=== PATIENT | male | born 1940 | race Caucasian/White ===

== ENCOUNTER 2020-01-21 11:10 | Inpatient (IN) | payer MEDICARE, OTHER ==
[2020-01-21 12:29] LABS: ALBUMIN 3.4 g/dL (3.5-5.0); ALKALINE PHOSPHATASE 71 U/L (38-126); ANION GAP 5 (5-19); ASPARTATE AMINO TRANSFERASE 26 U/L (17-59); BILIRUBIN,DIRECT 0.1 mg/dL (0.0-0.4); BLOOD UREA NITROGEN 27 mg/dL (7-20); CALCIUM 8.8 mg/dL (8.4-10.2); CARBON DIOXIDE 29 mmol/L (22-30); CHLORIDE 103 mmol/L (98-107); GLUCOSE 90 mg/dL (75-110); POTASSIUM 3.6 mmol/L (3.6-5.0)
[2020-01-21 12:39] LABS: HEMATOCRIT 38.1 % (37.9-51.0); HEMOGLOBIN 13.6 g/dL (13.5-17.0); MEAN CORPUSCULAR HEMOGLOBIN 35.8 pg (27.0-33.4); MEAN CORPUSCULAR HGB CONC 35.8 g/dL (32.0-36.0); MEAN CORPUSCULAR VOLUME 100 fl (80-97); PLATELET COUNT 114 10^3/uL (150-450); RED CELL DISTRIBUTION WIDTH 13.7 % (11.5-14.0); WHITE BLOOD COUNT 9.1 10^3/uL (4.0-10.5)
--- NOTE | 2020-01-21 12:41 | ER Document Report ---
ED Respiratory Problem - General Chief Complaint: Shortness Of Breath Stated Complaint: SHORTNESS OF BREATH Time Seen by Provider: 01/21/20 12:08 Primary Care Provider: HANS AGUDELO MD [Primary Care Provider] - Follow up as needed Notes: CHIEF COMPLAINT: Shortness of breath intermittently for 3 weeks HPI: 79-year-old male with history of COPD who denies cardiac problems presenting for intermittent shortness of breath for 3 weeks. Patient states that exertional activities make him short of breath, did not give him chest pain. Has been seeing his PCP and his engraver rubber in [place], states he did have some blood work done 2 to 3 days ago was called today and told he needed to have a CTA of the chest to rule out a blood clot. Patient states that they did COVID-19 testing on him yesterday although he has not had recent travel or exposure. Patient states that when he is sitting still he does not have problems with shortness of breath. Patient states that when he exerts himself his pulse oximetry which he checks at home will drop to 85%. Patient does not use oxygen at home ROS: See HPI - all other systems were reviewed and are otherwise negative Constitutional: no fever Eyes: no drainage, no blurred vision ENT: no runny nose, no sore throat Cardiovascular: no chest pain Resp: + SOB, no cough GI: no vomiting, no diarrhea, no abdominal pain : no dysuria Integumentary: no rash Allergy: no hives Musculoskeletal: no extremity pain or swelling Neurological: no numbness/tingling, no weakness MEDICATIONS: I agree with the patient medications as charted by the RN. ALLERGIES: I agree with the allergies as charted by the RN. PAST MEDICAL HISTORY/PAST SURGICAL HISTORY: Reviewed and agree as charted by RN. SOCIAL HISTORY: Reviewed and agree as charted by RN. FAMILY HISTORY: No significant familial comorbid conditions directly related to patient complaint EXAM: Reviewed vital signs as charted by RN. CONSTITUTIONAL: Alert and oriented and responds appropriately to questions. Well-appearing; well-nourished HEAD: Normocephalic; atraumatic EYES: PERRL; Conjunctivae clear, sclerae non-icteric ENT: normal nose; no rhinorrhea; moist mucous membranes; pharynx without lesions noted, no uvula edema or deviation, no tonsillar hypertrophy, phonation normal NECK: Supple without meningismus; non-tender; no cervical lymphadenopathy, no masses CARD: RRR; no murmurs, no clicks, no rubs, no gallops; symmetric distal pulses RESP: Normal chest excursion without splinting or tachypnea; breath sounds clear and equal bilaterally; no wheezes, no rhonchi, no rales, pulse oximetry 94% on room air at rest ABD/GI: Normal bowel sounds; non-distended; soft, non-tender, no rebound, no guarding; no palpable organomegaly or masses. BACK: The back appears normal and is non-tender to palpation, there is no CVA tenderness EXT: Normal ROM in all joints; non-tender to palpation; no cyanosis, no effusions, no edema SKIN: Normal color for age and race; warm; dry; good turgor; no acute lesions noted NEURO: Moves all extremities equally; Motor and sensory function intact PSYCH: The patient's mood and manner are appropriate. Grooming and personal hygiene are appropriate. MDM: 79-year-old male with COPD history with intermittent shortness of breath for 3 weeks worse with exertional activities. States that his engraver rubber did blood work several days ago and told him it was abnormal and he needed a CTA of the chest for blood clot, had COVID testing yesterday although he does not have significant risk factors. Will obtain screening cardiac labs, CTA of the chest. Will have nursing ambulate the patient to evaluate for hypoxia TRAVEL OUTSIDE OF THE [place] IN LAST 30 DAYS: No - Related Data Allergies/Adverse Reactions: No Known Allergies Allergy (Unverified 11/04/15 14:55) Home Medications: tamsulosin, finasteride, lasix, cetirizine, folic acid, potassium, metoprolol, meclizine, olmesartan-hctz, mirtazepine, flonase, lorazepam, adderall, lamictal, dulera, spirivia, proair, incruse Past Medical History - Social History Smoking Status: Former Smoker Chew tobacco use (# tins/day): No Frequency of alcohol use: daily Family History: Reviewed & Not Pertinent Patient has homicidal ideation: No - Past Medical History Cardiac Medical History: Reports: Hx Hypercholesterolemia, Hx Hypertension - MEDICATED Denies: Hx Atrial Fibrillation, Hx Congestive Heart Failure, Hx Coronary Artery Disease, Hx Heart Attack, Hx Peripheral Vascular Disease, Hx Pulmonary Embolism, Hx Heart Murmur Pulmonary Medical History: Reports: Hx COPD, Hx Sleep Apnea - wears c-pap at home Denies: Hx Asthma, Hx Bronchitis, Hx Pneumonia, Hx Respiratory Failure, Hx Tuberculosis Neurological Medical History: Denies: Hx Cerebrovascular Accident, Hx Seizures, Hx Parkinson's Disease Endocrine Medical History: Denies: Hx Graves' Disease, Hx Hyperthyroidism, Hx Hypothyroidism Renal/ Medical History: Reports: Hx Benign Prostatic Hyperplasia. Denies: Hx End Stage Renal Disease, Hx Kidney Stones, Hx Peritoneal Dialysis Malignancy Medical History: Denies Hx Leukemia, Denies Hx Lung Cancer GI Medical History: Reports: Hx Gastroesophageal Reflux Disease, Hx Irritable Bowel. Denies: Hx Crohn's Disease, Hx Hepatitis, Hx Hiatal Hernia, Hx Liver Failure, Hx Pancreatitis, Hx Ulcer Musculoskeletal Medical History: Denies Hx Arthritis, Denies Hx Fibromyalgia, Denies Hx Multiple Sclerosis, Denies Hx Muscular Dystrophy, Denies Hx Systemic Lupus Erythematosus Psychiatric Medical History: Reports: Hx Bipolar Disorder, Hx Post Traumatic Stress Disorder Denies: Hx Dementia, Hx Depression, Hx Schizophrenia Traumatic Medical History: Denies: Hx Fractures Infectious Medical History: Denies: Hx Hepatitis, Hx HIV Past Surgical History: Reports: Hx Orthopedic Surgery. Denies: Hx Appendectomy, Hx Bowel Surgery, Hx Cholecystectomy, Hx Colostomy, Hx Coronary Artery Bypass Graft, Hx Gastric Bypass Surgery, Hx Herniorrhaphy, Hx Open Heart Surgery, Hx Pacemaker, Hx Tonsillectomy - Immunizations Hx Diphtheria, Pertussis, Tetanus Vaccination: Yes Hx Pneumococcal Vaccination: 04/25/12 Physical Exam - Vital signs Vitals: Temp Pulse Resp BP Pulse Ox 97.5 F 53 L 20 149/64 H 94 01/21/20 11:52 01/21/20 11:52 01/21/20 11:52 01/21/20 11:52 01/21/20 11:52 Course - Re-evaluation Re-evalutation: 01/21/20 13:49 Pulse oximetry 91 to 92% on room air with ambulation. 01/21/20 14:47 called by the reading radiologist, patient with bilateral PE. discussed with Dr. Diaz, Attending. Will start heparin drip. Awaiting official read then will call the patient's engraver rubber Dr. Agudelo in [place]. 01/21/20 15:[address] Loaiza, Hospitalist. Reviewed the patient's case and imaging studies. He states he would be more comfortable admitting the patient if we called a vascular surgeon to have them review the images to make sure the patient would not need catheter directed TPA or other intervention at this time. I have had the PCT send the images to [facility] and I will consult the vascular surgery team. 01/21/20 15:19 spoke with Transfer center at [facility], they will look at the images and have Vas cular call vt 01/21/20 15:[address] Penny, Vascular surgery, [facility]. He has evaluated the images, we discussed the patient's lab work and clinical picture, he does not believe patient needs TPA or other intervention at this time will likely need an echocardiogram performed but they would not intervene otherwise in this patient other than putting him on heparin at this time 01/21/20 15:[address] Loaiza, Hospitalist. case and consult discussed, will admit, IMCU/Telemetry - Vital Signs Vital signs: Temp Pulse Resp BP Pulse Ox 97.5 F 53 L 18 146/81 H 90 L 01/21/20 11:52 01/21/20 11:52 01/21/20 14:32 01/21/20 13:01 01/21/20 14:32 - Laboratory Result Diagrams: 01/21/20 11:33 01/21/20 11:33 Laboratory results interpreted by vt: 01/21/20 01/21/20 11:33 11:33 RBC 3.80 L MCV 100 H MCH 35.8 H Plt Count 114 L Band Neutrophils % 1 L Sodium 136.5 L BUN 27 H Total Protein 6.0 L Albumin 3.4 L Discharge - Discharge Clinical Impression: Pulmonary embolism, bilateral Condition: Fair Disposition: ADMITTED INPATIENT Admitting Provider: Josse (Hospitalist) Unit Admitted: IMCU Referrals: HANS AGUDELO MD [Primary Care Provider] - Follow up as needed
--- NOTE | 2020-01-21 12:55 | EKG REPORT ---
SEVERITY:- OTHERWISE NORMAL ECG - SINUS BRADYCARDIA ATRIAL PREMATURE COMPLEX : Confirmed by: Mraty Phan MD 21-Jan-2020 12:54:33
[2020-01-21 13:12] LABS: ABSOLUTE LYMPHOCYTES# (MANUAL) 1.8 10^3/uL (0.5-4.7); ABSOLUTE MONOCYTES # (MANUAL) 0.7 10^3/uL (0.1-1.4); BAND NEUTROPHILS % (MANUAL) 1 % (3-5); BASOPHILS % (MANUAL) 0 % (0-2); EOSINOPHILS % (MANUAL) 0 % (0-6); LYMPHOCYTES % (MANUAL) 18 % (13-45); MONOCYTES % (MANUAL) 8 % (3-13); PLATELET COMMENT DECREASED; SEGMENTED NEUTROPHILS % (MAN) 71 % (42-78); TOTAL CELLS COUNTED 100
[2020-01-21 14:11] LABS: APPEARANCE,URINE CLEAR; BILIRUBIN,URINE NEGATIVE (NEGATIVE); COLOR,URINE YELLOW; GLUCOSE, URINE NEGATIVE (NEGATIVE); KETONES,URINE NEGATIVE (NEGATIVE); LEUKOCYTE ESTERASE,URINE NEGATIVE (NEGATIVE); NITRITE,URINE NEGATIVE (NEGATIVE); PROTEIN,URINE NEGATIVE (NEGATIVE); UROBILINOGEN,URINE NEGATIVE mg/dL (<2.0)
[2020-01-21] MEDS ORDERED: HEPARIN SOD (PORCINE) 1,000 UNIT/ML 10 ML VIAL IV ONE (14:38)
--- NOTE | 2020-01-21 14:45 | RADIOLOGY REPORT (SQ) ---
EXAM DESCRIPTION: CTA CHEST IMAGES COMPLETED DATE/TIME: 01/21/2020 2:29 pm REASON FOR STUDY: pulm embolus COMPARISON: Ventilation/ perfusion scan 04/25/2012 AP chest 04/25/2012 TECHNIQUE: CT scan of the chest performed using helical scanning technique with dynamic intravenous contrast injection. Images reviewed with lung, soft tissue and bone windows. Reconstructed coronal and sagittal MPR images reviewed. Additional 3 dimensional post-processing performed to develop Maximal Intensity Projection images (MN P). All images stored on PACS. All CT scanners at this facility use dose modulation, iterative reconstruction, and/or weight based d osing when appropriate to reduce radiation dose to as low as reasonably achievable (ALARA). [facility]: Dose Right [facility]: CareDose [facility]: Dose Right [facility]: Teradose 4D [facility]: Accedo CONTRAST TYPE AND DOSE: contrast/concentration: Isovue 350.00 mg/ml; Total Contrast Delivered: 64.0 ml; Total Saline Delivered: 80.0 ml Contrast bolus adequate for pulmonary arteries and aorta. RENAL FUNCTION: GFR > 60. RADIATION DOSE: CT Rad equipment meets quality standard of care and radiation dose reduction techniq ues were employed. CTDIvol: 15.7 - 30.0 mGy. DLP: 706 mGy-cm. . LIMITATIONS: None. FINDINGS: LUNGS AND PLEURA: No masses, infiltrates, or pneumothorax. No pleural effusions or pleura l calcifications. AORTA AND GREAT VESSELS: No thoracic aortic dissection or aneurysm HEART: No pericardial effusion. No significant coronary artery calcifications. PULMONARY ARTERIES: Heavy burden of acute pulmonary emboli to the distal right and left main pulmonar y arteries extending into the segmental pulmonary arteries. This report was called as a critical fin ding to Pranav Buckley in the emergency room, 1430 hours 01/21/2020. HILAR AND MEDIASTINAL STRUCTURES: No identified masses or abnormal nodes. HARDWARE: None in the chest. UPPER ABDOMEN: Gallstones without gallbladder wall thickening or pericholecystic fluid. THYROID AND OTHER SOFT TISSUES: No masses. No adenopathy. BONES: No acute or significant finding. 3D MIPS: Confirm above findings. OTHER: No other significant finding. IMPRESSION: Heavy burden of acute pulmonary emboli bilaterally. COMMENT: Pertinent findings on the imaging study reported as a CRITICAL RESULT to PRANAV MCNAMARA P-C at14:30 on 01/21/2020. Category of Critical Result: Bilateral pulmonary emboli Quality ID # [id number]: Final reports with documentation of one or more dose reduction techniques (e.g., Au tomated exposure control, adjustment of the mA and/or kV according to patient size, use of iterative reconstruction technique) TECHNICAL DOCUMENTATION: JOB ID: [id number] 2010 [employer]- All Rights Reserved Reading location - IP/workstation name: [id number]
[2020-01-21 14:55] LABS: INTERNATIONAL RATION (INR) 0.99
[2020-01-21 14:56] LABS: PARTIAL THROMBOPLASTIN TIME 27.1 SEC (23.5-35.8)
[2020-01-21] MEDS: HEPARIN SODIUM,PORCINE/D5W 25,000 UNIT/250 ML RTUINJ IV PRN (15:35)
[2020-01-21] MEDS ORDERED: IPRATROPIUM/ALBUTEROL 0.5-2.5 MG/3 ML AMPUL NEB PRN (17:16)
[2020-01-21] MEDS ORDERED: ACETAMINOPHEN 325 MG TABLET PO PRN (17:16)
[2020-01-21] MEDS ORDERED: OXYCODONE-ACETAMINOPHEN 5-325 MG TABLET PO PRN (17:16)
[2020-01-21] MEDS ORDERED: ONDANSETRON HCL INJ/PF 4 MG/2 ML SDV IV PRN (17:22)
[2020-01-21] MEDS ORDERED: ONDANSETRON 4 MG TAB.RAPDIS PO PRN (17:22)
[2020-01-21] MEDS ORDERED: MORPHINE SULFATE 10 MG/ML INJ IV PRN (17:24)
[2020-01-21] MEDS ORDERED: HEPARIN SOD (PORCINE) 1,000 UNIT/ML 10 ML VIAL IV PRN (17:39)
--- NOTE | 2020-01-21 17:39 | PDOC H&P ---
History of Present Illness Admission Date/PCP: 01/21/20 16:12 HANS AGUDELO MD History of Present Illness: MARIAA VIEIRA is a 79 year old male with past medical history significant for hypertension, hyperlipidemia, COPD who presents with a 6-week history of progressive shortness of breath/ALMAGUER/generalized fatigue and weakness sent to ED by his human resources benefits manager. Patient was tested for coronavirus at his pulmonology office and this test is pending, he was also tested with the rapid coronavirus test in the ED and this was negative. Patient underwent CTA of the chest abdomen pelvis which revealed large burden of bilateral extensive pulmonary emboli from distal main arteries to subsegmental. ED physician called outside hospital vascular surgeon who stated the patient is not a candidate for any acute intervention and he should simply be placed on IV heparin drip and monitored in the hospital. Per patient, he has an extensive family history of DVT/PE/CVA but he states this primarily occurs in the females in his family and he does not recall any clotting disorders in the men. Patient denies any fever/chills/chest pain/cough/nausea/vomiting/diarrhea. He denies any recent sick contacts. Past Medical History Cardiac Medical History: Reports: Hyperlipidema, Hypertension - MEDICATED Denies: Atrial Fibrillation, Congestive Heart Failure, Coronary Artery Disease, Myocardial Infarction, Peripheral Vascular Disease, Pulmonary Embolism, Heart Murmur Pulmonary Medical History: Reports: Chronic Obstructive Pulmonary Disease (COPD), Sleep Apnea - wears c-pap at home Denies: Asthma, Bronchitis, Pneumonia, Respiratory Failure, Tuberculosis Neurological Medical History: Denies: Seizures Endocrine Medical History: Denies: Hyperthyroidism, Hypothyroidism Renal/ Medical History: Denies: End Stage Renal Disease Malignancy Medical History: Denies: Breast Cancer, Cervical Cancer, Leukemia, Lung Cancer, Ovarian Cancer GI Medical History: Reports: Gastroesophageal Reflux Disease Denies: Crohn's Disease, Hepatitis, Hiatal Hernia Musculoskeltal Medical History: Denies: Arthritis, Fibromyalgia Psychiatric Medical History: Reports: Bipolar Disorder, Post Traumatic Stress Disorder Denies: Dementia, Depression Hematology: Denies: Anemia, Hemophilia, Sickle Cell Disease Infectious Medical History: Denies: HIV Past Surgical History Past Surgical History: Reports: Orthopedic Surgery Denies: Appendectomy, Cholecystectomy, Colostomy, Coronary Artery Bypass Graft, Gastric Bypass Surgery, Herniorrhaphy, Pacemaker, Tonsillectomy Social History Information Source: Patient, Emergency Med Personnel, [facility] Records Lives with: Family Smoking Status: Former Smoker Electronic Cigarette use?: No Hx Recreational Drug Use: No Hx Prescription Drug Abuse: No - Advance Directive Resuscitation Status: Do Not Resuscitate Surrogate healthcare decision maker:: Son Family History Family History: Reviewed & Not Pertinent, CVA, Other - Clotting disorders Parental Family History Reviewed: Yes Children Family History Reviewed: Yes Sibling(s) Family History Reviewed.: Yes Medication/Allergy Home Medications: Budesonide [Rhinocort Aqua 32 mcg Nasal Inhaler] 1 spray NS BID PRN 04/24/12 Cetirizine HCl/Pseudoephedrine [Zyrtec-D Tablet] 1 each PO DAILY 04/24/12 Fluticasone/Salmeterol [Advair 500-50 Diskus 28 Dose] 1 puff IH DAILY 04/24/12 Folic Acid 1 mg PO DAILY 04/24/12 Lamotrigine [Lamictal 100 Mg Tablet] 300 mg PO QAM 04/24/12 Lisinopril/Hydrochlorothiazide [Zestoretic 20-25 Mg Tablet] 1 each PO BID 04/24/12 Lorazepam [Ativan 0.5 Mg Tablet] 1 mg PO ASDIR PRN 04/24/12 Metoprolol Tartrate [Lopressor 100 Mg Tablet] 200 mg PO BID 04/24/12 Montelukast Sodium [Singulair 10 Mg Tablet] 10 mg PO QHS 04/24/12 Naproxen [Naprosyn] 500 mg PO PRN PRN 04/24/12 Omeprazole [Prilosec 20 mg Capsule] 20 mg PO BID 04/24/12 Potassium Chloride [Klor-Con 10 Meq Tablet.sa] 10 meq PO BID 04/24/12 Tiotropium [place] [Spiriva Handihaler 18 mcg/dose (30 Dose)] 1 puff IH DAILY 04/24/12 Trazodone HCl [Desyrel] 50 mg PO QHS 04/24/12 Albuterol Sulfate [Proventil 0.5% Neb 2.5 mg/0.5 mL Ampule] 2.5 mg IH QID PRN 04/25/12 Furosemide [Lasix 40 mg Tablet] 40 mg PO DAILY 04/25/12 Ipratropium/Albuterol Sulfate [Combivent Inhaler] 14.7 gm IH Q8 04/25/12 Bupropion HCl [Wellbutrin 100 mg Tablet] 200 mg PO DAILY 10/14/15 Finasteride [Proscar 5 mg Tablet] 5 mg PO DAILY 10/14/15 Tamsulosin HCl [Flomax 0.4 mg Cap.sr] 0.4 mg PO DAILY 10/14/15 Besifloxacin HCl [Besivance Drops] 1 drop OP . 3 & 8 PM TODAY 10/20/15 Difluprednate [Durezol] 1 drop OP . 3 & 8 PM TODAY 10/20/15 Nepafenac [Ilevro] 1 drop OP . 3 & 8 PM TODAY 10/20/15 Allergies/Adverse Reactions: No Known Allergies Allergy (Unverified 11/04/15 14:55) Review of Systems All systems: reviewed and no additional remarkable complaints except as stated - Per HPI, otherwise negative Physical Exam Vital Signs: Temp Pulse Resp BP Pulse Ox 97.5 F 53 L 14 144/69 H 97 01/21/20 11:52 01/21/20 11:52 01/21/20 16:46 01/21/20 16:46 01/21/20 16:46 Intake & Output 01/20/20 01/21/20 01/22/20 06:59 06:59 06:59 Weight 124.738 kg General appearance: PRESENT: no acute distress, morbidly obese, well-developed, well-nourished Head exam: PRESENT: atraumatic, normocephalic Eye exam: PRESENT: conjunctiva pink Mouth exam: PRESENT: moist Respiratory exam: PRESENT: clear to auscultation declan. ABSENT: rales, rhonchi, wheezes Cardiovascular exam: PRESENT: RRR. ABSENT: diastolic murmur, rubs, systolic murmur GI/Abdominal exam: PRESENT: normal bowel sounds, soft. ABSENT: distended, guarding, mass, organolmegaly, rebound, tenderness Rectal exam: PRESENT: deferred Extremities exam: PRESENT: pedal edema Neurological exam: PRESENT: alert, awake, oriented to person, oriented to place, oriented to time, oriented to situation Psychiatric exam: PRESENT: appropriate affect, normal mood Skin exam: PRESENT: dry, intact, warm Results Laboratory Results: 01/21/20 11:33 01/21/20 11:33 01/21/20 01/21/20 01/21/20 11:33 11:33 13:48 WBC 9.1 RBC 3.80 L Hgb 13.6 Hct 38.1 MCV 100 H MCH 35.8 H MCHC 35.8 RDW 13.7 Plt Count 114 L Seg Neutrophils % Not Reportable Sodium 136.5 L Potassium 3.6 Chloride 103 Carbon Dioxide 29 Anion Gap 5 BUN 27 H Creatinine 1.15 Est GFR ( Amer) > 60 Glucose 90 Calcium 8.8 Total Bilirubin 1.0 AST 26 Alkaline Phosphatase 71 Total Protein 6.0 L Albumin 3.4 L Urine Color YELLOW Urine Appearance CLEAR Urine pH 6.0 Ur Specific [place] 1.020 Urine Protein NEGATIVE Urine Glucose (UA) NEGATIVE Urine Ketones NEGATIVE Urine Blood NEGATIVE Urine Nitrite NEGATIVE Ur Leukocyte Esterase NEGATIVE Urine WBC (Auto) 1 01/21/20 01/21/20 11:33 11:33 Troponin I < 0.012 NT-Pro-B Natriuret Pep 220 Impressions: Chest/Abdomen CTA 01/21/20 12:09 IMPRESSION: Heavy burden of acute pulmonary emboli bilaterally. Assessment and Plan - Diagnosis (1) Pulmonary embolism, bilateral Is this a current diagnosis for this admission?: Yes Plan: 6-week history of progressive shortness of breath/ALMAGUER; no history of previous clotting per patient Vascular surgery called at outside hospital by ED, not a candidate for any acute intervention, recommended heparin drip Heparin drip IV started on admission Plan to transition to oral anticoagulant at discharge which she will likely need lifelong, discussed with patient Echocardiogram Reviewed CTA chest/abdomen/pelvis: Showed extensive clotting bilaterally in distal left and right pulmonary arteries Hypercoagulability work-up pending; needs referral to hematology outpatient (2) HTN (hypertension) Is this a current diagnosis for this admission?: Yes Plan: No medications continued selectively (3) HLD (hyperlipidemia) Is this a current diagnosis for this admission?: Yes Plan: Statin (4) COPD (chronic obstructive pulmonary disease) Is this a current diagnosis for this admission?: Yes Plan: Not in exacerbation Home medications (5) Obesity Qualifiers: Obesity type: due to excess calories Obesity classification: adult class 2 (BMI 35 - 39.9) Serious obesity comorbidity presence: without serious comorbidity Body mass index: BMI 37.0-37.9 Qualified Code(s): E66.09 - Other obesity due to excess calories; Z68.37 - Body mass index (BMI) 37.0-37.9, adult Is this a current diagnosis for this admission?: Yes Plan: Needs weight loss - Time Time Spent with patient: 35 or more minutes Medications reviewed and adjusted accordingly: Yes Anticipated discharge: Home Within: within 72 hours - Inpatient Certification Based on my medical assessment, after consideration of the patient's comorbidities, presenting symptoms, or acuity I expect that the services needed warrant INPATIENT care.: Yes I certify that my determination is in accordance with my understanding of [facility]'s requirements for reasonable and necessary INPATIENT services [42 CFR 412.3e].: Yes Medical Necessity: Significant Comorbidiites Make Outpatient Treatment Too Risky, Need Close Monitoring Due to Risk of Patient Decompensation, Need For Continuous Telemetry Monitoring, Risk of Complication if Not Cared For in Hospital, Risk of Diagnosis Which Will Require Inpatient Eval/Care/Monitoring
--- NOTE | 2020-01-21 17:40 | ADVANCED CARE ---
- Diagnosis (1) Pulmonary embolism, bilateral Diagnosis Current: Yes (2) HTN (hypertension) Diagnosis Current: Yes (3) HLD (hyperlipidemia) Diagnosis Current: Yes (4) COPD (chronic obstructive pulmonary disease) Diagnosis Current: Yes (5) Obesity Diagnosis Current: Yes Attendance: Patient Resuscitation Status: Do Not Resuscitate Discussion: All aspects of code status discussed with patient/POA including cardioversion, chest compressions, and intubation and the patient/POA indicated they wish to be DNR/DNI. MPOA is designated as: Trell Gonzalez Time Spent: 17 minutes
[2020-01-22] MEDS: HEPARIN SODIUM,PORCINE/D5W 25,000 UNIT/250 ML RTUINJ IV PRN (03:40)
[2020-01-22 03:46] LABS: HEMATOCRIT 36.7 % (37.9-51.0); HEMOGLOBIN 13.3 g/dL (13.5-17.0); MEAN CORPUSCULAR HEMOGLOBIN 35.7 pg (27.0-33.4); MEAN CORPUSCULAR HGB CONC 36.2 g/dL (32.0-36.0); MEAN CORPUSCULAR VOLUME 99 fl (80-97); PLATELET COUNT 114 10^3/uL (150-450); RED BLOOD COUNT 3.72 10^6/uL (4.35-5.55); RED CELL DISTRIBUTION WIDTH 13.8 % (11.5-14.0); WHITE BLOOD COUNT 8.8 10^3/uL (4.0-10.5)
[2020-01-22] MEDS ORDERED: (PENDING PHARMACY ID) (Albuterol Sulfate 2 PUFF) IH PRN (07:46)
[2020-01-22] MEDS: POTASSIUM CHLORIDE 10 MEQ TABLET.ER PO SCH ×2 (09:32→18:14)
[2020-01-22] MEDS: DOCUSATE SODIUM 100 MG CAPSULE PO SCH ×2 (09:32→09:37)
[2020-01-22] MEDS: MECLIZINE HCL 25 MG TABLET PO SCH ×2 (09:32→18:14)
[2020-01-22] MEDS: LORAZEPAM 0.5 MG TABLET PO SCH ×2 (09:34→13:58)
[2020-01-22] MEDS ORDERED: ALBUTEROL SULFATE HFA (90 MCG/PUFF) 200 PUFF/8.5 GM MDI IH PRN (09:55)
[2020-01-22] MEDS ORDERED: FLUTICASONE NASAL SPRAY 50 MCG/SPRY 120 SPRAY/16 GM NASL SCH (10:00)
[2020-01-22] MEDS ORDERED: ALLOPURINOL 300 MG TABLET PO SCH (10:00)
[2020-01-22] MEDS ORDERED: (PENDING PHARMACY ID) (Tiotropium Bromide [Spiriva Handihaler 5 Cap/Kit (18 Mcg/Cap)] 1 CA PO SCH (10:00)
[2020-01-22] MEDS ORDERED: FOLIC ACID 1 MG TABLET PO SCH (10:00)
[2020-01-22] MEDS ORDERED: FUROSEMIDE 40 MG TABLET PO SCH (10:00)
[2020-01-22] MEDS ORDERED: FLUTICASONE/UMECLIDIN/VILANTER 100-62.5-25 MCG/DOSE IH SCH (10:00)
[2020-01-22] MEDS ORDERED: METOPROLOL SUCCINATE 50 MG TAB.SR.24H PO SCH (10:00)
[2020-01-22] MEDS ORDERED: (PENDING PHARMACY ID) (Metoprolol Succinate [Toprol Xl] 200 MG) PO SCH (10:00)
[2020-01-22] MEDS ORDERED: FINASTERIDE 5 MG TABLET PO SCH (10:00)
--- NOTE | 2020-01-22 10:43 | PDOC PROGRESS REPORT ---
Subjective Progress Note for:: 01/22/20 Subjective:: 01/22/2020 Patient medications have been confirmed by pharmacy and will be selectively restarted. Patient overall doing quite well today. He is no longer requiring supplemental oxygen. He is ambulatory around the room. I went a great detail explained to him the nature of hypercoagulable states and the reasons he will likely need lifelong anticoagulation in the future. I discussed the risks and benefits associated with this. Patient did clarify that he only takes 100 mg of Toprol-XL each morning rather than the 200 mg and 100 mg doses that he has listed in his home meds. Discussed the plan with nursing. Patient has no new complaints otherwise. Reason For Visit: BILATERAL PULMONARY EMBOLI Physical Exam Vital Signs: Temp Pulse Resp BP Pulse Ox 97.4 F 92 22 H 144/63 H 94 01/22/20 08:21 01/22/20 08:21 01/22/20 08:21 01/22/20 08:21 01/22/20 08:21 Intake & Output 01/21/20 01/22/20 01/23/20 06:59 06:59 06:59 Intake Total 254 Output Total 350 Balance -96 Weight 121.9 kg General appearance: PRESENT: no acute distress, morbidly obese, well-developed, well-nourished Head exam: PRESENT: atraumatic, normocephalic Eye exam: PRESENT: conjunctiva pink Mouth exam: PRESENT: moist Respiratory exam: PRESENT: clear to auscultation declan. ABSENT: accessory muscle use, rales, rhonchi, wheezes Cardiovascular exam: PRESENT: RRR. ABSENT: diastolic murmur, rubs, systolic m urmur GI/Abdominal exam: PRESENT: normal bowel sounds, soft. ABSENT: distended, guarding, mass, organolmegaly, rebound, tenderness Extremities exam: PRESENT: pedal edema Neurological exam: PRESENT: alert, awake, oriented to person, oriented to place, oriented to time, oriented to situation Psychiatric exam: PRESENT: appropriate affect, normal mood Skin exam: PRESENT: dry, intact, warm Results Laboratory Results: 01/22/20 03:38 01/21/20 11:33 01/21/20 01/21/20 01/21/20 11:33 11:33 13:48 WBC 9.1 RBC 3.80 L Hgb 13.6 Hct 38.1 MCV 100 H MCH 35.8 H MCHC 35.8 RDW 13.7 Plt Count 114 L Seg Neutrophils % Not Reportable Sodium 136.5 L Potassium 3.6 Chloride 103 Carbon Dioxide 29 Anion Gap 5 BUN 27 H Creatinine 1.15 Est GFR ( Amer) > 60 Glucose 90 Calcium 8.8 Magnesium Total Bilirubin 1.0 AST 26 Alkaline Phosphatase 71 Total Protein 6.0 L Albumin 3.4 L Urine Color YELLOW Urine Appearance CLEAR Urine pH 6.0 Ur Specific [place] 1.020 Urine Protein NEGATIVE Urine Glucose (UA) NEGATIVE Urine Ketones NEGATIVE Urine Blood NEGATIVE Urine Nitrite NEGATIVE Ur Leukocyte Esterase NEGATIVE Urine WBC (Auto) 1 01/22/20 01/22/20 03:38 03:38 WBC 8.8 RBC 3.72 L Hgb 13.3 L Hct 36.7 L MCV 99 H MCH 35.7 H MCHC 36.2 H RDW 13.8 Plt Count 114 L Seg Neutrophils % Sodium Potassium Chloride Carbon Dioxide Anion Gap BUN Creatinine Est GFR ( Amer) Glucose Calcium Magnesium 2.0 Total Bilirubin AST Alkaline Phosphatase Total Protein Albumin Urine Color Urine Appearance Urine pH Ur Specific [place] Urine Protein Urine Glucose (UA) Urine Ketones Urine Blood Urine Nitrite Ur Leukocyte Esterase Urine WBC (Auto) 01/21/20 01/21/20 01/21/20 11:33 11:33 17:55 Troponin I < 0.012 < 0.012 NT-Pro-B Natriuret Pep 220 Impressions: Chest/Abdomen CTA 01/21/20 12:09 IMPRESSION: Heavy burden of acute pulmonary emboli bilaterally. Assessment and Plan - Diagnosis (1) Pulmonary embolism, bilateral Is this a current diagnosis for this admission?: Yes Plan: 6-week history of progressive shortness of breath/ALMAGUER; no history of previous clotting per patient Vascular surgery called at outside hospital by ED, not a candidate for any acute intervention, recommended heparin drip Heparin drip IV started on admission Plan to transition to oral anticoagulant at discharge which she will likely need lifelong, discussed with patient Echocardiogram Reviewed CTA chest/abdomen/pelvis: Showed extensive clotting bilaterally in distal left and right pulmonary arteries Hypercoagulability work-up pending; needs referral to hematology outpatient 01/22/2020 Continue IV heparin for 1 more day, then transition to oral anticoagulant tomorrow most likely Eliquis Echocardiogram is pending Hypercoagulability work-up is still pending (2) HTN (hypertension) Is this a current diagnosis for this admission?: Yes (3) HLD (hyperlipidemia) Is this a current diagnosis for this admission?: Yes (4) COPD (chronic obstructive pulmonary disease) Is this a current diagnosis for this admission?: Yes (5) Obesity Qualifiers: Obesity type: due to excess calories Obesity classification: adult class 2 (BMI 35 - 39.9) Serious obesity comorbidity presence: without serious comorbidity Body mass index: BMI 37.0-37.9 Qualified Code(s): E66.09 - Other obesity due to excess calories; Z68.37 - Body mass index (BMI) 37.0-37.9, adult Is this a current diagnosis for this admission?: Yes - Time Time Spent with patient: 15-24 minutes Medications reviewed and adjusted accordingly: Yes Anticipated discharge: Home Within: within 48 hours - Inpatient Certification Based on my medical assessment, after consideration of the patient's comorbidities, presenting symptoms, or acuity I expect that the services needed warrant INPATIENT care.: Yes I certify that my determination is in accordance with my understanding of Medicare's requirements for reasonable and necessary INPATIENT services [42 CFR 412.3e].: Yes Medical Necessity: Significant Comorbidiites Make Outpatient Treatment Too Risky, Need Close Monitoring Due to Risk of Patient Decompensation, Risk of Complication if Not Cared For in Hospital, Risk of Diagnosis Which Will Require Inpatient Eval/Care/Monitoring
--- NOTE | 2020-01-22 12:01 | XCELERA REPORT ---
[address] [address] Transthoracic Echocardiogram Report Name: MARIAA VIEIRA Age: 79 yrs Gender: Male : 1940 Patient Status: Inpatient Patient Location: [address] [place], [place] [address] Study Date: 01/21/2020 07:09 PM Height: 72 in Weight: 275 lb BSA: 2.4 m2 Reason For Study: CHF Ordering Physician: CATIA CLARKE Performed By: Molly Mcdaniel Interpretation Summary LEFT VENTRICLE: LV Systolic function: LVEF is felt to be within normal limits. Best estimate is approximately LVEF is 60 to 65%. LV Diastolic Function: Grade II diastolic dysfunction noted. Wall motion : No definite regional wall motion abnormalities are noted. Left ventricular chamber size : is within normal limit. Left ventricular wall thickness : is increased indicative of Mild LVH. RIGHT VENTRICLE: RV systolic function : is felt to be within normal limit. Right Ventricle Size : is within normal limits. LEFT ATRIUM size : is moderately dilated. RIGHT ATRIUM size : is within normal limit. INTER ATRIAL SEPTUM : No definite atrial septal defect noted however a small PFO could be missed. AORTIC ROOT : seems to be within normal limits. Ascending aorta is not well visualized. INFERIOR VENA CAVA: was not well visualized. VALVES: MITRAL VALVE : Leaflets are mildly thickened. Mobility seems to be within normal limits. Mitral Regurgitation : Trace mitral regurgitation is noted. Mitral Stenosis: No mitral stenosis noted. Mitral valve prolapse : none noted. AORTIC VALVE: seems to be trileaflet with mild thickening but adequate excursion. Aortic stenosis : No aortic stenosis noted. Aortic regurgitation : No aortic incompetence noted. TRICUSPID VALVE : mobility and structures within normal limit. Tricuspid stenosis : no tricuspid stenosis noted. Tricuspid regurgitation : Trace tricuspid regurgitation noted. Estimated RVSP : cannot be accurately commented upon but possibly at upper limit of normal. PULMONARY VALVE : was not well visualized but no significant abnormalities suspected. Pulmonary stenosis : no pulmonary stenosis noted. Pulmonary regurgitation : no significant pulmonary regurgitation noted. MASSES AND THROMBUS : No definite intracardiac thrombus or masses are noted. PERICARDIUM: No pericardial effusion was noted. IMPRESSION : 1. Normal LVEF. 2. Mild LVH noted 3. Grade II [mild] Diastolic Dysfunction noted. 4. No significant valvular stenosis or regurgitation noted. 5. LA is moderately dilated. MMode/2D Measurements & Calculations RVDd: 4.1 cm LVIDd: 6.4 cm FS: 32.3 % Ao root diam: 3.5 cm IVSd: 1.3 cm LVIDs: 4.3 cm EDV(Teich): 207.3 ml LVPWd: 1.0 cm ESV(Teich): 84.0 ml Ao root area: 9.6 cm2 LA dimension: 4.9 cm EF(Teich): 59.5 % Doppler Measurements & Calculations MV E max harinder: MV P1/2t max harinder: Ao V2 max: LV V1 max P.0 cm/sec 82.8 cm/sec 167.0 cm/sec 8.4 mmHg MV A max harinder: MV P1/2t: 54.2 msec Ao max PG: LV V1 max: 74.8 cm/sec MVA(P1/2t): 4.1 cm2 11.1 mmHg 144.6 cm/sec MV E/A: 0.72 MV dec slope: 447.2 cm/sec2 MV dec time: 0.27 sec PA V2 max: MV P1/2t-pr_phl: 82.9 cm/sec 54.2 msec PA max P.7 mmHg : CATIA CLARKE Shyamal
[2020-01-22 17:28] LABS: HEMATOCRIT 40.9 % (37.9-51.0); HEMOGLOBIN 14.4 g/dL (13.5-17.0); MEAN CORPUSCULAR HEMOGLOBIN 35.4 pg (27.0-33.4); MEAN CORPUSCULAR HGB CONC 35.3 g/dL (32.0-36.0); MEAN CORPUSCULAR VOLUME 101 fl (80-97); PLATELET COUNT 129 10^3/uL (150-450); RED BLOOD COUNT 4.07 10^6/uL (4.35-5.55); WHITE BLOOD COUNT 9.6 10^3/uL (4.0-10.5)
--- NOTE | 2020-01-22 17:55 | PDOC TRANSFER SUMMARY ---
General Admission Date/PCP: 01/21/20 16:12 HANS AGUDELO MD Resuscitation Status: Do Not Resuscitate - Transfer Diagnosis (1) Pulmonary embolism, bilateral Is this a current diagnosis for this admission?: Yes (2) HTN (hypertension) Is this a current diagnosis for this admission?: Yes (3) HLD (hyperlipidemia) Is this a current diagnosis for this admission?: Yes (4) COPD (chronic obstructive pulmonary disease) Is this a current diagnosis for this admission?: Yes (5) Obesity Is this a current diagnosis for this admission?: Yes - Transfer Medications Home Medications: Folic Acid 1 mg PO DAILY 04/24/12 Lorazepam [Ativan 0.5 Mg Tablet] 1 mg PO BID@08,1300 04/24/12 Potassium Chloride [Klor-Con 10 Meq Tablet.sa] 10 meq PO BID 04/24/12 Furosemide [Lasix 40 mg Tablet] 40 mg PO DAILY 04/25/12 Finasteride [Proscar 5 mg Tablet] 5 mg PO DAILY 10/14/15 Tamsulosin HCl [Flomax 0.4 mg Cap.sr] 0.4 mg PO QPM 10/14/15 Albuterol Sulfate [Proair HFA Inhalation Aerosol 8.5 gm MDI] 2 puff IH Q6HP PRN 01/21/20 Allopurinol [Zyloprim 300 mg Tablet] 300 mg PO DAILY 01/21/20 Cetirizine HCl [Zyrtec 10 mg Tablet] 10 mg PO QPM 01/21/20 Dextroamphetamine/Amphetamine [Adderall 5 mg Tablet] 5 mg PO DAILY 01/21/20 Fluticasone Propionate [Flonase Nasal [place] 50 Mcg/[place] 16 gm] 2 spray NASL DAILY 01/21/20 Fluticasone/Umeclidin/Vilanter [Trelegy 100-62.5-25 Mcg Ellipta 14 Dose/Dpi] 1 puff IH DAILY 01/21/20 Ibuprofen [Motrin Ib] 200 mg PO DAILYP PRN 01/21/20 Lamotrigine [Lamictal] 50 mg PO QHS 01/21/20 Meclizine HCl [Antivert 25 mg Tablet] 25 mg PO BID 01/21/20 Metoprolol Succinate [Toprol Xl] 100 mg PO QHS 01/21/20 Metoprolol Succinate [Toprol Xl] 200 mg PO DAILY 01/21/20 Mirtazapine [Remeron 15 mg Tablet] 15 mg PO QHS 01/21/20 Olmesartan/Hydrochlorothiazide [Olmesartan-Hctz 40-25 mg Tab] 1 tab PO DAILY 01/21/20 Tiotropium [place] [Spiriva Handihaler 5 Cap/Kit (18 Mcg/Cap)] 1 cap PO DAILY 01/21/20 Transfer Medications: Current Medications Acetaminophen (Tylenol 325 Mg Tablet) 650 mg PO Q4HP PRN PRN Reason: pain or fever Stop: 02/20/20 17:15 Albuterol (Proair Hfa Inhalation Aerosol 8.5 Gm Mdi) 2 puff IH Q6HP PRN PRN Reason: SHORTNESS OF BREATH Stop: 02/21/20 09:54 Albuterol/Ipratropium (Duoneb 3 Ml Ampul) 3 ml NEB RTQ2HP PRN PRN Reason: SHORTNESS OF BREATH Stop: 02/20/20 17:15 Allopurinol (Zyloprim 300 Mg Tablet) 300 mg PO DAILY OTTO Stop: 02/21/20 09:59 Last Admin: 01/22/20 09:32 Dose: 300 mg Documented by: Cetirizine HCl (Zyrtec 10 Mg Tablet) 10 mg PO QPM OTTO Stop: 02/21/20 17:59 Docusate Sodium (Colace 100 Mg Capsule) 100 mg PO DAILY OTTO Stop: 02/21/20 09:59 Last Admin: 01/22/20 09:37 Dose: Not Given Documented by: Finasteride (Proscar 5 Mg Tablet) 5 mg PO DAILY OTTO Stop: 02/21/20 09:59 Last Admin: 01/22/20 09:32 Dose: 5 mg Documented by: Fluticasone Propionate (Flonase Nasal [place] 50 Mcg/[place] 16 Gm) 2 spray NASL DAILY OTTO Stop: 02/21/20 09:59 Last Admin: 01/22/20 09:33 Dose: 2 spr Documented by: Fluticasone/Vilanterol (Trelegy 100-62.5-25 Mcg Ellipta 14 Dose/Dpi) 1 inh IH DAILY OTTO Stop: 02/21/20 09:59 Last Admin: 01/22/20 09:35 Dose: 1 inhaler Documented by: Folic Acid (Folvite 1 Mg Tablet) 1 mg PO DAILY OTTO Stop: 02/21/20 09:59 Last Admin: 01/22/20 09:32 Dose: 1 mg Documented by: Furosemide (Lasix 40 Mg Tablet) 40 mg PO DAILY [facility] Stop: 02/21/20 09:59 Last Admin: 01/22/20 09:32 Dose: 40 mg Documented by: Heparin Sodium (Porcine) (Heparin Inj 1,000 Unit/Ml 10 Ml Vial) 0 - 15,000 unit IV .BOLUS PER PROTOCOL PRN; Protocol PRN Reason: RESPOND TO aPTT VALUE Stop: 02/20/20 17:38 Heparin Sodium/Dextrose (Heparin Rtu 25,000 Unit/250 Ml D5w Premix) 25,000 unit in 250 mls @ 0 mls/hr IV CONTINUOUS PRN; Protocol PRN Reason: THIS MED IS NOT "PRN" Stop: 02/20/20 14:37 Last Titration: 01/22/20 06:20 Dose: 13.75 mls/hr Documented by: Lamotrigine (Lamictal 100 Mg Tablet) 50 mg PO QHS [facility] Stop: 02/21/20 21:59 Lorazepam (Ativan 0.5 Mg Tablet) 1 mg PO BID@08,1300 [facility] Stop: 01/29/20 07:59 Last Admin: 01/22/20 13:58 Dose: 1 mg Documented by: Meclizine HCl (Antivert 25 Mg Tablet) 25 mg PO BID [facility] Stop: 02/21/20 09:59 Last Admin: 01/22/20 09:32 Dose: 25 mg Documented by: Metoprolol Succinate (Toprol Xl 50 Mg Tab.Sr) 100 mg PO DAILY [facility] Stop: 02/21/20 09:59 Last Admin: 01/22/20 10:47 Dose: 100 mg Documented by: Mirtazapine (Remeron 15 Mg Tablet) 15 mg PO QHS [facility] Stop: 02/21/20 21:59 Morphine Sulfate (Morphine 10 Mg/Ml Inj) 1 mg IV Q2HP PRN PRN Reason: FOR PAIN SCALE 4-5 Stop: 01/28/20 17:23 Ondansetron HCl (Zofran Odt 4 Mg Tablet) 4 mg PO Q4HP PRN PRN Reason: FOR NAUSEA/VOMITING Stop: 02/20/20 17:21 Ondansetron HCl (Zofran Inj/Pf 4 Mg/2 Ml Sdv) 4 mg IV Q4HP PRN PRN Reason: FOR NAUSEA/VOMITING Stop: 02/20/20 17:21 Oxycodone/Acetaminophen (Percocet 5-325 Mg Tablet) 1 tab PO Q6HP PRN PRN Reason: FOR PAIN SCALE 3-5 Stop: 01/28/20 17:15 Patient Own Medication (Tiotropium [place] [Spiriva Handihaler 5 Cap/Kit (18 Mcg/Cap)]) 1 cap PO DAILY OTTO Stop: 02/21/20 09:59 Potassium Chloride (Klor-Con 10 Meq Tablet Er) 10 meq PO BID OTTO Stop: 02/21/20 09:59 Last Admin: 01/22/20 09:32 Dose: 10 meq Documented by: Tamsulosin HCl (Flomax 0.4 Mg Cap.Sr) 0.4 mg PO QPM OTTO Stop: 02/21/20 17:59 - Allergies Allergies/Adverse Reactions: No Known Allergies Allergy (Unverified 11/04/15 14:55) Hospital Course Hospital Course: MARIAA VIEIRA is a 79 year old male with past medical history significant for hypertension, hyperlipidemia, COPD who presents with a 6-week history of progressive shortness of breath/ALMAGUER/generalized fatigue and weakness 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 Patient was tested for coronavirus at his pulmonology office and this test is pending, he was also tested with the rapid coronavirus test in the ED and this was negative. Patient underwent CTA of the chest abdomen pelvis which revealed large burden of bilateral extensive pulmonary emboli from distal main arteries to subsegmental. ED physician called outside hospital vascular surgeon who stated the patient is not a candidate for any acute intervention and he should simply be placed on IV heparin drip and monitored in the hospital. Per patient, he has an extensive family history of DVT/PE/CVA but he states this primarily occurs in the females in his family and he does not recall any clotting disorders in the men. Patient denies any fever/chills/chest pain/cough/nausea/vomiting/diarrhea. He denies any recent sick contacts. 01/22/2020 Patient medications have been confirmed by pharmacy and will be selectively restarted. Patient overall doing quite well today. He is no longer requiring supplemental oxygen. He is ambulatory around the room. I went a great detail explained to him the nature of hypercoagulable states and the reasons he will likely need lifelong anticoagulation in the future. I discussed the risks and benefits associated with this. Patient did clarify that he only takes 100 mg of Toprol-XL each morning rather than the 200 mg and 100 mg doses that he has listed in his home meds. Discussed the plan with nursing. Patient has no new c omplaints otherwise. At approximately 4 PM on 01/22/2020, patient began having bright red blood per r ectum and multiple liquid bowel movements which she stated were grossly bloody. Stat CBC was ordered and is pending at time of this note. Prior CBC showed approximately 13 for hemoglobin. General surgery was consulted who recommended patient have evaluation for IVC filter and have his heparin stopped. He also recommended transfer to an outside facility that has GI and vascular surgery capabilities. I also consulted radiology who stated they cannot do IVC filters at [facility]. [facility] was called for transfer and they accepted the patient for evaluation of large clot burden bilateral PE with lower GI bleeding on IV heparin; heparin drip has been stopped. Please notify the attending physician when the patient arrives to the facility. Patient may return to [facility] when all necessary procedures have been completed and he is stabilized to the point he can tolerate transfer. (1) Pulmonary embolism, bilateral Is this a current diagnosis for this admission?: Yes Plan: 6-week history of progressive shortness of breath/ALMAGUER; no history of previous clotting per patient Vascular surgery called at outside hospital by ED, not a candidate for any acute intervention, recommended heparin drip Heparin drip IV started on admission Plan to transition to oral anticoagulant at discharge which she will likely need lifelong, discussed with patient Echocardiogram Reviewed CTA chest/abdomen/pelvis: Showed extensive clotting bilaterally in distal left and right pulmonary arteries Hypercoagulability work-up pending; needs referral to hematology outpatient 01/22/2020 Continue IV heparin for 1 more day, then transition to oral anticoagulant tomorrow most likely Eliquis Echocardiogram is pending Hypercoagulability work-up is still pending (2) HTN (hypertension) Is this a current diagnosis for this admission?: Yes Cautious use of BP meds in setting of bleeding (3) HLD (hyperlipidemia) Is this a current diagnosis for this admission?: Yes Statin (4) COPD (chronic obstructive pulmonary disease) Is this a current diagnosis for this admission?: Yes Former smoker Home inhalers continued (5) Obesity Qualifiers: Obesity type: due to excess calories Obesity classification: adult class 2 (BMI 35 - 39.9) Serious obesity comorbidity presence: without serious comorb idity Body mass index: BMI 37.0-37.9 Qualified Code(s): E66.09 - Other obesity due to excess calories; Z68.37 - Body mass index (BMI) 37.0-37.9, adult Is this a current diagnosis for this admission?: Yes Physical Exam Vital Signs: Temp Pulse Resp BP Pulse Ox 97.4 F 63 18 145/61 H 90 L 01/22/20 15:46 01/22/20 15:46 01/22/20 15:46 01/22/20 15:46 01/22/20 15:46 Intake & Output 01/21/20 01/22/20 01/23/20 06:59 06:59 06:59 Intake Total 254 350 Output Total 350 150 Balance -96 200 Weight 121.9 kg General appearance: PRESENT: no acute distress, morbidly obese, obese Head exam: PRESENT: atraumatic, normocephalic Eye exam: PRESENT: conjunctiva pink Mouth exam: PRESENT: moist Respiratory exam: PRESENT: clear to auscultation declan. ABSENT: rales, rhonchi, wheezes Cardiovascular exam: PRESENT: RRR. ABSENT: diastolic murmur, rubs, systolic murmur GI/Abdominal exam: PRESENT: normal bowel sounds, soft. ABSENT: distended, guarding, mass, organolmegaly, rebound, tenderness Rectal exam: PRESENT: bloody stool Extremities exam: PRESENT: pedal edema Neurological exam: PRESENT: alert, awake, oriented to person, oriented to place, oriented to time, oriented to situation Psychiatric exam: PRESENT: appropriate affect, normal mood Skin exam: PRESENT: dry, intact, warm Results Laboratory Results: 01/21/20 11:33 01/22/20 01/22/20 03:38 03:38 WBC 8.8 RBC 3.72 L Hgb 13.3 L Hct 36.7 L MCV 99 H MCH 35.7 H MCHC 36.2 H RDW 13.8 Plt Count 114 L Magnesium 2.0 01/21/20 01/21/20 01/21/20 11:33 11:33 17:55 Troponin I < 0.012 < 0.012 NT-Pro-B Natriuret Pep 220 Impressions: Chest/Abdomen CTA 01/21/20 12:09 IMPRESSION: Heavy burden of acute pulmonary emboli bilaterally. Plan Discharge Plan: Transfer to [facility] for vascular GI evaluation Time Spent: Greater than 30 Minutes
[2020-01-22] MEDS ORDERED: CETIRIZINE 10 MG TABLET PO SCH (18:00)
[2020-01-22] MEDS ORDERED: TAMSULOSIN HCL 0.4 MG CAP.SR.24H PO SCH (18:00)
[2020-01-22 18:04] LABS: ABSOLUTE LYMPHOCYTES# (MANUAL) 1.2 10^3/uL (0.5-4.7); ABSOLUTE MONOCYTES # (MANUAL) 0.4 10^3/uL (0.1-1.4); ANISOCYTOSIS SLIGHT; BASOPHILS % (MANUAL) 0 % (0-2); EOSINOPHILS % (MANUAL) 0 % (0-6); LYMPHOCYTES % (MANUAL) 12 % (13-45); MONOCYTES % (MANUAL) 4 % (3-13); PLATELET COMMENT DECREASED; SEGMENTED NEUTROPHILS % (MAN) 84 % (42-78); TOTAL CELLS COUNTED 100
[2020-01-22 20:35] VITALS: BP 138/68
[2020-01-22] MEDS ORDERED: MIRTAZAPINE 15 MG TABLET PO SCH (22:00)
[2020-01-22] MEDS ORDERED: LAMOTRIGINE 100 MG TABLET PO SCH (22:00)
== END 2020-01-22 21:16 | disposition short-term general hospital (02) | DRG 176 ==
LOC: ER 11:10 → EH 16:12 → 3S 17:50
PROVIDERS: ADMIT Internal Medicine; ATTEND Internal Medicine
DX: I26.99 Other pulmonary embolism without acute cor pulmonale (principal); J44.9 Chronic obstructive pulmonary disease, unspecified; E78.00 Pure hypercholesterolemia, unspecified; I10 Essential (primary) hypertension; N40.0 Benign prostatic hyperplasia without lower urinary tract symptoms; K21.9 Gastro-esophageal reflux disease without esophagitis; E66.01 Morbid (severe) obesity due to excess calories
CPT/HCPCS: 36415; 71275; 80053; 81001; 83735; 83880; 84484; 85025; 85027; 85610; 85730; 87635; 93005; 93010; 93306; 99285; J1644; J3490